=== PATIENT | female | born 1950 | race American Indian/Alaskan Native ===

== ENCOUNTER 2017-04-05 15:48 | Emergency (ER) | payer MEDICARE ==
[2017-04-05] MEDS ORDERED: NITROSTAT SL ONE (16:26)
[2017-04-05] MEDS ORDERED: ASPIRIN PO ONE (16:26)
--- NOTE | 2017-04-05 16:27 | Emergency Department Report ---
ED General Adult HPI - General Chief complaint: Hypoglycemia Stated complaint: LOW BLOOD SUGAR Time Seen by Provider: 04/05/17 16:18 Source: patient, family, EMS (ems notes not available at time of chart dictation), RN notes reviewed Mode of arrival: Stretcher Limitations: No Limitations - History of Present Illness Initial comments: This is a 66-year-old female. The patient is previously unknown to this provider. She typically lives in [place]. Patient reports a past medical history of end-stage renal disease on dialysis, Thursday, Thursday, Thursday, diabetes, hypertension, neuropathy Patient initially brought to the hospital by EMS for hypoglycemia and erratic behavior. This has since resolved. The patient indicates she only takes insulin for her diabetes, and she indicates she does not take oral hypoglycemics. Patient reports that she took her insulin this morning and last night, that she' s been eating quite voraciously. She denies headache, neck pain, abdominal pain , urinary symptoms, cough. On review of systems, patient does endorse that she has chest pain. The chest pain has been present intermittently since Thursday. It is associated with shortness of breath. Patient is not sure if the shortness of breath is new or old. She denies vomiting and diaphoresis. She denies leg pain and leg swelling. Denies pulmonary embolus, DVT risk factors. She reports that her chest pain feels like "a pill stuck in my mouth." -: Gradual Location: chest Radiation: non-radiation Quality: aching Consistency: intermittent Improves with: rest Worsens with: movement Associated Symptoms: chest pain. denies: confusion, cough, diaphoresis, fever/ chills, headaches, loss of appetite, malaise, nausea/vomiting, shortness of breath, syncope, weakness - Related Data Allergies Allergy/AdvReac Type Severity Reaction Status Date / Time acetaminophen Allergy Unknown Verified 04/05/17 15:58 [From Darvocet-N 100] propoxyphene Allergy Unknown Verified 04/05/17 15:58 [From Darvocet-N 100] ED Review of Systems ROS: Stated complaint: LOW BLOOD SUGAR Other details as noted in HPI ED Past Medical Hx - Past Medical History Hx Hypertension: Yes Hx Diabetes: Yes Hx Renal Disease: Yes (HD MWF) - Surgical History Hx Cholecystectomy: Yes Additional Surgical History: BL ankle, L big toe, hysterectomy - Social History Smoking Status: Former Smoker Substance Use Type: None ED Physical Exam - General Limitations: No Limitations General appearance: alert, in no apparent distress - Head Head exam: Present: atraumatic, normocephalic - Eye Eye exam: Present: normal appearance, PERRL, EOMI. Absent: nystagmus - ENT ENT exam: Present: normal exam, normal orophraynx, mucous membranes moist, normal external ear exam - Neck Neck exam: Present: normal inspection, full ROM - Respiratory Respiratory exam: Present: normal lung sounds bilaterally, chest wall tenderness. Absent: respiratory distress - Cardiovascular Cardiovascular Exam: Present: regular rate, normal rhythm, normal heart sounds. Absent: systolic murmur, diastolic murmur, rubs, gallop - GI/Abdominal GI/Abdominal exam: Present: soft, normal bowel sounds. Absent: distended, tenderness, guarding, rebound, rigid, pulsatile mass - Extremities Exam Extremities exam: Present: normal inspection, full ROM, normal capillary refill , other (right upper extremity AV fistula, appropriate thrill, no redness, pus or streaks). Absent: tenderness, pedal edema, joint swelling, calf tenderness - Back Exam Back exam: Present: normal inspection, full ROM. Absent: tenderness, CVA tenderness (R), paraspinal tenderness, vertebral tenderness - Neurological Exam Neurological exam: Present: alert, oriented X3, CN II-XII intact, normal gait, other (Extraocular movements intact. Tongue midline. No facial droop. Facial sensation intact to light touch in the V1, V2, V3 distribution bilaterally. 5 and 5 strength in 4 extremities.. Sensation is intact to light touch in 4 extremities.). Absent: motor sensory deficit - Psychiatric Psychiatric exam: Present: normal affect, normal mood. Absent: homicidal ideation, suicidal ideation - Skin Skin exam: Present: warm, dry, intact, normal color. Absent: rash ED Course Vital Signs 04/05/17 04/05/17 04/05/17 15:49 17:03 17:09 Temperature 98.6 F Pulse Rate 92 H 98 H 93 H Respiratory 18 19 Rate Blood Pressure 174/74 187/87 Blood Pressure 187/87 [Right] O2 Sat by Pulse 96 100 Oximetry 04/05/17 04/05/17 18:09 19:15 Temperature Pulse Rate 93 H 68 Respiratory 18 18 Rate Blood Pressure Blood Pressure 201/85 202/76 [Right] O2 Sat by Pulse 98 Oximetry - Reevaluation(s) Reevaluation #1: 04/05/17 17:21 Differential diagnosis, including but not limited to: Resolved hypoglycemia, pneumonia, electrolyte derangement, costochondritis, acute coronary syndrome, pneumonia, esophagitis, GERD, gastritis, urinary tract infection Assessment and plan: 66-year-old female with 2 issues. Initially called for hypoglycemia. This has resolved. Patient takes insulin and no oral hypoglycemics. She is normoglycemic at this time. She has a family member who can watch her at home and take care of her for her diabetes if she requires. Patient has been observed in the ER for a few hours without clinical decompensation. X-ray of the chest is negative. Urinalysis is pending. Laboratory studies pending. Chest pain somewhat atypical, although reproducible, patient indicates itwas relieved with nitroglycerin. No pulmonary embolus or DVT risk factors, low risk by well's criteria, EKG unremarkable, extensive discussion had with patient and family regarding chest pain, cardiovascular risk profile, patient reports no recent ACS risk stratification. Instructed the patient that I would recommend admission to the hospital for stress test. Patient is declining at this time. Patient is alert and oriented 3. She gives decision-making capacity. She is here from distracting injury. Risks of leaving including , disability, paralysis, permanent loss of quality of life were reviewed with the patient and family, all of whom verbalized understanding, and this discussed was also witnessed by nurse Antonia Adams 04/05/17 17:23 Reevaluation #2: 04/05/17 19:42 Laboratory studies reviewed and are appreciated. Troponin negative. Chest x- ray negative. Potassium elevated. Kayexalate ordered. Blood pressure elevated. Went back and re discussed with patient. Reiterated recommendation for admission for acute coronary syndrome or stratification, blood pressure control. Patient still adamant about signing out AGAINST MEDICAL ADVICE. This is witnessed by family. Patient encouraged to return to the ER right away if/ when she changes her mind. ED Medical Decision Making - Lab Data Result diagrams: 04/05/17 16:00 04/05/17 17:12 Vital Signs 04/05/17 04/05/17 04/05/17 15:49 17:03 17:09 Temperature 98.6 F Pulse Rate 92 H 98 H 93 H Respiratory 18 19 Rate Blood Pressure 174/74 187/87 Blood Pressure 187/87 [Right] O2 Sat by Pulse 96 100 Oximetry Lab Results 04/05/17 04/05/17 04/05/17 Range/Units 16:00 16:00 16:00 WBC 6.9 (4.5-11.0) K/mm3 RBC 4.71 (3.65-5.03) M/mm3 Hgb 13.0 (10.1-14.3) gm/dl Hct 40.5 (30.3-42.9) % MCV 86 (79-97) fl MCH 28 (28-32) pg MCHC 32 (30-34) % RDW 18.3 H (13.2-15.2) % Plt Count 156 (140-440) K/mm3 Add Manual Diff Complete Total Counted 100 Seg Neuts % (Manual) 69.0 (40.0-70.0) % Band Neutrophils % 0 % Lymphocytes % (Manual) 24.0 (13.4-35.0) % Reactive Lymphs % (Man) 0 % Monocytes % (Manual) 6.0 (0.0-7.3) % Eosinophils % (Manual) 1.0 (0.0-4.3) % Basophils % (Manual) 0 (0.0-1.8) % Metamyelocytes % 0 % Myelocytes % 0 % Promyelocytes % 0 % Blast Cells % 0 % Nucleated RBC % Not Reportable Seg Neutrophils # Man 4.8 (1.8-7.7) K/mm3 Band Neutrophils # 0.0 K/mm3 Lymphocytes # (Manual) 1.7 (1.2-5.4) K/mm3 Abs React Lymphs (Man) 0.0 K/mm3 Monocytes # (Manual) 0.4 (0.0-0.8) K/mm3 Eosinophils # (Manual) 0.1 (0.0-0.4) K/mm3 Basophils # (Manual) 0.0 (0.0-0.1) K/mm3 Metamyelocytes # 0.0 K/mm3 Myelocytes # 0.0 K/mm3 Promyelocytes # 0.0 K/mm3 Blast Cells # 0.0 K/mm3 WBC Morphology Not Reportable Hypersegmented Neuts Not Reportable Hyposegmented Neuts Not Reportable Hypogranular Neuts Not Reportable Smudge Cells Not Reportable Toxic Granulation Not Reportable Toxic Vacuolation Not Reportable Dohle Bodies Not Reportable Pelger-Huet Anomaly Not Reportable Shawna Rods Not Reportable Platelet Estimate Consistent w auto Clumped Platelets Not Reportable Plt Clumps, EDTA Not Reportable Large Platelets Not Reportable Giant Platelets Not Reportable Platelet Satelliting Not Reportable Plt Morphology Comment Not Reportable RBC Morphology Not Reportable Dimorphic RBCs Not Reportable Polychromasia Not Reportable Hypochromasia Not Reportable Poikilocytosis 1+ Anisocytosis 1+ Microcytosis Not Reportable Macrocytosis Not Reportable Spherocytes Not Reportable Pappenheimer Bodies Not Reportable Sickle Cells Not Reportable Target Cells Not Reportable Tear Drop Cells Not Reportable Ovalocytes Not Reportable Helmet Cells Not Reportable Hernandez-[place] Bodies Not Reportable [place] Rings Not Reportable [place] Cells Not Reportable Bite Cells Not Reportable Crenated Cell Not Reportable Elliptocytes Not Reportable Acanthocytes (Spur) Not Reportable Rouleaux Not Reportable Hemoglobin C Crystals Not Reportable Schistocytes Not Reportable Malaria parasites Not Reportable Ryan Bodies Not Reportable Hem Pathologist Commnt No PT 13.5 (12.2-14.9) Sec. INR 0.98 (0.87-1.13) Sodium TNR Potassium TNR Chloride TNR Carbon Dioxide TNR Anion Gap TNR BUN TNR Creatinine TNR Estimated GFR TNR BUN/Creatinine Ratio TNR Glucose TNR POC Glucose (70-105) Calcium TNR Magnesium (1.7-2.3) mg/dL Total Creatine Kinase (30-135) units/L Troponin T TNR 04/05/17 04/05/17 Range/Units 16:00 16:02 WBC (4.5-11.0) K/mm3 RBC (3.65-5.03) M/mm3 Hgb (10.1-14.3) gm/dl Hct (30.3-42.9) % MCV (79-97) fl MCH (28-32) pg MCHC (30-34) % RDW (13.2-15.2) % Plt Count (140-440) K/mm3 Add Manual Diff Total Counted Seg Neuts % (Manual) (40.0-70.0) % Band Neutrophils % % Lymphocytes % (Manual) (13.4-35.0) % Reactive Lymphs % (Man) % Monocytes % (Manual) (0.0-7.3) % Eosinophils % (Manual) (0.0-4.3) % Basophils % (Manual) (0.0-1.8) % Metamyelocytes % % Myelocytes % % Promyelocytes % % Blast Cells % % Nucleated RBC % Seg Neutrophils # Man (1.8-7.7) K/mm3 Band Neutrophils # K/mm3 Lymphocytes # (Manual) (1.2-5.4) K/mm3 Abs React Lymphs (Man) K/mm3 Monocytes # (Manual) (0.0-0.8) K/mm3 Eosinophils # (Manual) (0.0-0.4) K/mm3 Basophils # (Manual) (0.0-0.1) K/mm3 Metamyelocytes # K/mm3 Myelocytes # K/mm3 Promyelocytes # K/mm3 Blast Cells # K/mm3 WBC Morphology Hypersegmented Neuts Hyposegmented Neuts Hypogranular Neuts Smudge Cells Toxic Granulation Toxic Vacuolation Dohle Bodies Pelger-Huet Anomaly Shawna Rods Platelet Estimate Clumped Platelets Plt Clumps, EDTA Large Platelets Giant Platelets Platelet Satelliting Plt Morphology Comment RBC Morphology Dimorphic RBCs Polychromasia Hypochromasia Poikilocytosis Anisocytosis Microcytosis Macrocytosis Spherocytes Pappenheimer Bodies Sickle Cells Target Cells Tear Drop Cells Ovalocytes Helmet Cells Hernandez-[place] Bodies [place] Rings [place] Cells Bite Cells Crenated Cell Elliptocytes Acanthocytes (Spur) Rouleaux Hemoglobin C Crystals Schistocytes Malaria parasites Ryan Bodies Hem Pathologist Commnt PT (12.2-14.9) Sec. INR (0.87-1.13) Sodium Potassium Chloride Carbon Dioxide Anion Gap BUN Creatinine Estimated GFR BUN/Creatinine Ratio Glucose POC Glucose 169 H (70-105) Calcium Magnesium 2.00 (1.7-2.3) mg/dL Total Creatine Kinase 245 H (30-135) units/L Troponin T - EKG Data -: EKG Interpreted by Mi - EKG Data When compared to previous EKG there are: previous EKG unavailable 04/05/17 17:24 EKG #1 demonstrates normal sinus, 88 bpm, normal intervals, normal axis, unremarkable EKG, not morphologically consistent with ST elevation myocardial infarction. - Radiology Data Radiology results: image reviewed interpreted by me: X-ray the chest, interpreted by me: No acute disease Critical care attestation.: If time is entered above; I have spent that time in minutes in the direct care of this critically ill patient, excluding procedure time. ED Disposition Clinical Impression: Chest wall pain, History of hypoglycemia Disposition: LEFT AGAINST MED ADVICE Is pt being admited?: No Does the pt Need Aspirin: No Condition: Undetermined Instructions: Chest Pain (ED) Additional Instructions: As we discussed, you have left the hospital/emergency room AGAINST MEDICAL ADVICE. By leaving, you risked , disability, paralysis, permanent loss of quality of life. The ER is open 24 hours a day, 7 days a week. It never closes. Please return to the emergency room right away if and when you change your mind. If you decide not to return to the emergency room, please follow-up with the listed physician referrals as soon as possible. Referrals: [facility] [Primary Care Provider] - 3-5 Days [facility] [Provider Group] - 3-5 Days [facility] [Provider Group] - 3-5 Days
[2017-04-05 16:33] LABS: Hematocrit 40.5 % (30.3-42.9); Mean Corpuscular HGB Conc 32 % (30-34); Mean Corpuscular Hemoglobin 28 pg (28-32); Mean Corpuscular Volume 86 fl (79-97); Platelet Count 156 K/mm3 (140-440); Red Blood Count 4.71 M/mm3 (3.65-5.03); Red Cell Distribution Width 18.3 % (13.2-15.2)
[2017-04-05 16:36] LABS: INR 0.98 (0.87-1.13)
[2017-04-05 17:09] LABS: BUN/Creatinine Ratio TNR; Basophils % (Manual) 0 % (0.0-1.8); Blood Urea Nitrogen TNR mg/dL (7-17); Total Cells Counted 100
[2017-04-05 17:10] LABS: Anisocytosis 1+; Calcium TNR mg/dL (8.4-10.2); Hemolysis Index TNR; Platelet Estimate Consistent w Auto; Poikilocytosis 1+
[2017-04-05 19:24] LABS: Bilirubin,Urine NEG (Negative); Blood,Urine MOD (Negative); Color,Urine Straw (Yellow); Nitrite,Urine NEG (Negative); Urobilinogen,Urine < 2.0 mg/dL (<2.0)
--- NOTE | 2017-04-05 19:31 | XRay Report ---
FINAL REPORT EXAM: XR CHEST ROUTINE 2V HISTORY: Chest Pain TECHNIQUE: PA and lateral views of the chest PRIORS: None. FINDINGS: Lines, tubes, and devices: N/A Lungs and pleura: Trachea is normal in position. Lungs are clear of infiltrate, pleural effusion, vascular congestion, or pneumothorax. Cardiomediastinal silhouette: Cardiac and mediastinal silhouettes are unremarkable. Other: Bony structures are intact. IMPRESSION: No acute cardiopulmonary process seen.
[2017-04-05] MEDS ORDERED: KIONEX PO ONE (19:42)
[2017-04-05 20:17] VITALS: BP 188/86
== END 2017-04-05 20:18 | disposition left against medical advice (07) ==
LOC: ED 15:48
DX: R07.89 Other chest pain (principal); E11.22 Type 2 diabetes mellitus with diabetic chronic kidney disease; I12.0 Hypertensive chronic kidney disease with stage 5 chronic kidney disease or end stage renal disease; N18.6 End stage renal disease; Z87.891 Personal history of nicotine dependence; Z88.8 Allergy status to other drugs, medicaments and biological substances
CPT/HCPCS: 36415; 71046; 80048; 81001; 82550; 82962; 83735; 84484; 85007; 85025; 85610; 93005; 93010